=== PATIENT | female | born 1985 ===

== ENCOUNTER 2022-10-30 13:14 | Outpatient (CLI) | payer OTHER | END 2022-10-30 14:16 | disposition home or self-care (01) | LOC: PRENATAL 13:14 | PROVIDERS: ATTEND Obstetrics & Gynecology Maternal & Fetal Medicine | DX: O36.80X0 Pregnancy with inconclusive fetal viability, not applicable or unspecified (principal); O09.529 Supervision of elderly multigravida, unspecified trimester; Z3A.14 14 weeks gestation of pregnancy ==

== ENCOUNTER 2022-12-08 12:57 | Outpatient (CLI) | payer OTHER | END 2022-12-08 14:25 | disposition home or self-care (01) | LOC: PRENATAL 12:57 | PROVIDERS: ATTEND Obstetrics & Gynecology Maternal & Fetal Medicine | DX: O35.9XX0 Maternal care for (suspected) fetal abnormality and damage, unspecified, not applicable or unspecified (principal); O35.3XX0 Maternal care for (suspected) damage to fetus from viral disease in mother, not applicable or unspecified; Z14.8 Genetic carrier of other disease; O09.529 Supervision of elderly multigravida, unspecified trimester; Z3A.20 20 weeks gestation of pregnancy ==

== ENCOUNTER 2023-01-26 10:37 | Outpatient (CLI) | payer OTHER | END 2023-01-26 12:45 | disposition home or self-care (01) | LOC: PRENATAL 10:37 | PROVIDERS: ATTEND Obstetrics & Gynecology Maternal & Fetal Medicine | DX: O26.849 Uterine size-date discrepancy, unspecified trimester (principal); O09.529 Supervision of elderly multigravida, unspecified trimester; Z14.8 Genetic carrier of other disease; Z3A.27 27 weeks gestation of pregnancy ==

== ENCOUNTER 2023-03-16 11:03 | Outpatient (CLI) | payer OTHER | END 2023-03-16 13:13 | disposition home or self-care (01) | LOC: PRENATAL 11:03 | PROVIDERS: ATTEND Obstetrics & Gynecology Maternal & Fetal Medicine | DX: O26.849 Uterine size-date discrepancy, unspecified trimester (principal); O36.8199 Decreased fetal movements, unspecified trimester, other fetus; O09.529 Supervision of elderly multigravida, unspecified trimester; O43.90 Unspecified placental disorder, unspecified trimester; Z3A.34 34 weeks gestation of pregnancy ==